=== PATIENT | male | born 1975 | race Caucasian/White ===

== ENCOUNTER 2018-05-01 15:30 | Emergency (ER) | payer OTHER ==
[2018-05-01] MEDS: FLUORESCEIN STRIP LEFT EYE (16:24)
[2018-05-01] MEDS: OPHTHALMIC IRRIG SOLUTION 120 ML LEFT EYE (16:24)
[2018-05-01] MEDS: TETRACAINE 0.5% 4 ML OPH LEFT EYE (16:24)
== END 2018-05-01 17:10 | disposition home or self-care (01) ==
LOC: FTE 15:30
DX: S05.92XA Unspecified injury of left eye and orbit, initial encounter (principal); W22.8XXA Striking against or struck by other objects, initial encounter; Y92.009 Unspecified place in unspecified non-institutional (private) residence as the place of occurrence of the external cause
CPT/HCPCS: 99283; Z7610

== ENCOUNTER 2019-05-20 10:20 | Emergency (ER) | payer SELFPAY, OTHER | END 2019-05-20 13:06 | disposition left against medical advice (07) | LOC: FTE 13:06 | DX: Z53.21 Procedure and treatment not carried out due to patient leaving prior to being seen by health care provider (principal) ==